=== PATIENT | male | born 1965 | race Caucasian/White ===

== ENCOUNTER → 2018-05-09 | Outpatient (CLI) | payer OTHER ==
[2018-05-09 10:20] LABS: ABSOLUTE BASOPHILS 0.1 thou/uL (0.0-0.2); ABSOLUTE EOSINOPHILS 0.2 thou/uL (0.0-0.7); ABSOLUTE LYMPHOCYTES 1.8 thou/uL (0.8-5.3); ABSOLUTE MONOCYTES 0.3 thou/uL (0.0-1.2); ABSOLUTE NEUTROPHILS 2.3 thou/uL (1.6-8.1); BASOPHILS 2.5 %; EOSINOPHILS 3.4 %; HEMATOCRIT 39.1 % (42.0-52.0); HEMOGLOBIN 12.1 gm/dL (14.0-18.0); LYMPHOCYTES 38.9 %; MCH 21.9 pg (26.0-34.0); MCV 70.7 fL (80.0-100.0); MONOCYTES 5.8 %; MPV 9.8 fl. (7.2-11.1); NUCLEATED RBCS 0 /100WBC; PLATELET COUNT* 218 thou/uL (150-400); POLYS 49.4 %; RBC 5.52 mil/uL (4.50-6.00); RDW-CV 17.6 % (10.5-14.5); WBC 4.7 thou/uL (4.0-11.0)
[2018-05-09 10:30] LABS: ALBUMIN 3.7 g/dL (3.4-5.0); CREATININE 1.4 mg/dL (0.6-1.3); POTASSIUM 3.8 mmol/L (3.5-5.1); TOTAL BILIRUBIN 0.4 mg/dL (<0.1-1.0); TOTAL PROTEIN 7.4 g/dL (6.4-8.2)
[2018-05-09 10:47] LABS: ANISOCYTOSIS 1+; HYPOCHROMASIA 2+; MICROCYTES 1+; OVALOCYTES 2+; POLYCHROMASIA 1+
[2018-05-09 11:17] LABS: ESR (SEDRATE) 5 mm/hr (0-20)
== END ==
LOC: M.LAB 10:02
PROVIDERS: Internal Medicine Gastroenterology
DX: D50.9 Iron deficiency anemia, unspecified (principal)